=== PATIENT | female | born 1970 | race Caucasian/White ===

== ENCOUNTER → 2016-08-16 | Outpatient (CLI) | payer MEDICAID ==
[~2016-08-16] MED LIST: AMOXICOT500 MG PO; BENADRYL25 M1 PO; BUPROPION HYDR150 M1 PO; CHLORDIAZEPOXID25 MG PO; CIPRO 500MG TA500 MG PO; CLINDAMYCIN HC300 MG PO; FLEXERIL10 MG PO; IBU-8800 MG PO; LAMOTRIGINE25 MG PO; MEDROL 4MG. DOSE4 MG PO; NOMEDS *; NORCO 325 MG-51 TAB PO; PREDNISONE 10MG10 MG PO; QUETIAPINE FUMA25 M1 PO; TORADOL10 MG PO; ZANTAC 300300 MG PO
== END ==
LOC: LAB 16:01
DX: R76.8 Other specified abnormal immunological findings in serum (principal)

== ENCOUNTER 2017-05-17 11:36 | Emergency (ER) | payer MEDICAID ==
[~2017-05-17] VITALS: Ht 149.9 cm; Wt 62.6 kg
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
--- NOTE | 2017-05-17 11:56 | Emergency Room Report ---
History of Present Illness Time Seen by 1150 Presenting Problem in Triage Pt arrived:Walked Presenting Problem:PT HAS CHRONIC NUMBNESS AND TINGLING IN HER LEFT ARM. STATED THAT SHE FELT IT COMING ON AGAIN LAST NIGHT AND IT IS BOTHERING HER TO WEAR SHE CAN'T "STAND IT". PT WITH STRONG SCOLIOSIS HISTORY THAT SHE FEELS THIS IS SIMILAR TOO. 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 N Clinical Suspician of Infection? N Mental Status: 1 - Regular (Normal Baseline) Sepsis Risk:Low Sepsis Risk Have you (or family members/close friends) recently traveled outside the [place]? N If Yes, where/when: Have you had exposure to infectious disease within the past month? TB? Other? Specify: Comment The patient complains of pain in her LEFT scapular and trapezius areas going down her LEFT arm with tingling in her LEFT fingers. Current symptoms have been going on for 2-3 days, but she says she gets this recurrently off and on for years. It will generally last about 3 weeks before eventually going away. The only relief she can get is standing in a hot shower. She tries Aleve without much improvement. She has not seen her physician for this. ALLERGIES Coded Allergies: No Known Allergies (05/17/17) Home Medications Active Scripts Amoxicillin (Amoxicillin 500MG) 500 MG PO Q8 #30 CAP Prov: 05/07/16 Clindamycin Hcl (Clindamycin 300MG) 300 MG PO Q8 #21 CAP Prov: 05/07/16 Reported Medications Bupropion Hcl (Bupropion HCl Sr) 150 MG PO BID #60 Quetiapine Fumarate 50 MG PO BID #60 TAB Lamotrigine 75 MG PO BID #180 History Medical History General CAD? No Angina: No ND: No Hypertension? No Hyperlipidemia? No CHF? No DVT? No PE? No COPD? No Asthma? No Anemia? No GERD? No Gastric ulcers? No GI Bleed? No Hernia? No Thyroid Problems? No Hypothyroidism? No CVA? No Seizures? No Diabetes? No Renal Insuffiency? No End Stage Renal Disease? No UTI? No Stones? No GB Disease: No Nephritic Syndrome? No Asplenia? No Hepatitis? No Sickle Cell Disease? No Arthritis? No Migraines? No Cataracts? No Glaucoma? No MRSA? No HIV? No TB? No Anxiety? Yes Depression? Yes Cancer? No More? 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 Diffuse posterior ridging at that level with mild central canal stenosis as well as bilateral foraminal encroachment. Facet degeneration, most evident on the RIGHT at C2-C4, and on the LEFT involving C6-C7. Review of Systems All Other Systems Reviewed and Negative Constitutional denies fever Musculoskeletal see HPI Psychiatric/Neurological tingling Physical Exam Vital Signs Vital Signs Date Time Temp Pulse Resp B/P Pulse O2 O2 Flow FiO2 Ox Delivery Rate 05/17 1218 97.8 82 18 147/90 96 05/17 1143 97.8 82 18 147/90 96 General Appearance no apparent distress Neck mild posterior tenderness. Positive Spurling. Respiratory Status No: respiratory distress. Cardiovascular regular rate/rhythm, normal peripheral pulses Neurologic alert, no motor/sensory deficits Reflexes Comment 1+ reflexes upper extremities, bilaterally symmetric Medical Decision Making LABS/Meds/Orders Pt receiving controlled substance in ED? Yes Donavan was queried for this patient? Yes Comment [id number] 2 rxs. last rx 12 norco on 06/08/16. Departure Departure Disposition DC Home or Self Care(routine) Clinical Impression Primary Impression: Cervical radiculopathy Condition STABLE Referrals Dayna BENITEZ,Agus Morris (Family) Patient Instructions DI for Cervical Radiculopathy Prescriptions Current Visit Scripts Prednisone (Prednisone 10MG) 10 MG PO DAILY #27 TAB 6 po on days 1-2, then decrease dose by 1 pill per day until gone HYDROCODONE/ACETAMINOPHEN ([place] 5-325 Tablet) 1 TAB PO Q6HP PRN pain #10 TAB ED Critical Care Critical Care No at 1305
[2017-05-17 12:18] VITALS: BP 147/90
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
--- OUTSIDE RECORDS SUMMARY | 2017-05-24 04:22 | External Medical Summary Rpt | CCD ---
Demographics Preferred Language Malay Marital Status Unknown Christian Affiliation Unknown Race Unknown Ethnic Group Unknown Author Author , MAYA TREJO Address Unknown Phone Immunization No patient found.
--- OUTSIDE RECORDS SUMMARY | 2017-05-24 04:22 | External Medical Summary Rpt ---
Author Author MAYA Engle, [employer] Organization [facility] [employer] Address Unknown Phone Unavailable
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
--- OUTSIDE RECORDS SUMMARY | 2017-05-24 04:22 | External Medical Summary Rpt | CCD ---
Demographics Preferred Language Mohawk Marital Status Unknown Sikh Affiliation Unknown Race Unknown Ethnic Group Unknown Author Author , MAYA TREJO Address Unknown Phone Immunization No patient found.
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
== END 2017-05-17 12:19 | disposition home or self-care (01) ==
LOC: ER 11:36
DX: M54.12 Radiculopathy, cervical region (principal); F31.9 Bipolar disorder, unspecified; F41.9 Anxiety disorder, unspecified; F17.210 Nicotine dependence, cigarettes, uncomplicated; Z79.899 Other long term (current) drug therapy

== ENCOUNTER → 2017-05-30 | Outpatient (CLI) | payer MEDICARE, MEDICAID ==
--- NOTE | 2017-05-30 17:20 | RADIOLOGY REPORT PS360 ---
EXAM: CERVICAL SPINE 4 OR 5 VIEWS HISTORY: NECK PAIN ORDERING PHYSICIAN: Aimee Beltran APRN PATIENT AGE: 46 years COMPARISON: None FINDINGS: There is normal alignment. There is mild degenerative disc disease at C4-C5 and moderate to severe degenerative disc disease at C5-C6 and C6-C7. Small posterior osteophyte is present at C5 inferiorly. Foraminal narrowing is present on the right at C3-C4 and C5-C6 and on the left at C5-C6. No fracture or dislocation. Facet arthritic changes are present from C3 to C7. No evidence of cervical rib. IMPRESSION: Cervical spondylosis with degenerative disc disease and facet arthritic changes with foraminal narrowing as detailed above
== END ==
LOC: LAB 16:45 → RAD 16:45
DX: M25.50 Pain in unspecified joint (principal); M54.2 Cervicalgia